=== PATIENT | male | born 1975 | race Two or more races ===

== ENCOUNTER 2022-10-10 08:46 | Emergency (ER) | payer SELFPAY ==
[~2022-10-10] VITALS: Ht 170.2 cm; Wt 75.0 kg
[2022-10-10 08:53] VITALS: BP 146/80; PULSE 88; RESP 16; TEMP 98.3; O2SAT 98
== END 2022-10-10 15:01 | disposition left against medical advice (07) ==
LOC: ER 08:46
DX: R41.82 Altered mental status, unspecified (principal)
CPT/HCPCS: 70450; 99284; Z7610 ×3